=== PATIENT | male | born 1960 | race Caucasian/White ===

== ENCOUNTER 2022-05-20 22:43 | Inpatient (IN) | payer MEDICAID ==
[~2022-05-20] VITALS: Ht 198.1 cm; Wt 89.4 kg
[2022-05-21 00:10] VITALS: BP 145/100
[2022-05-21] MEDS ORDERED: ACETAMINOPHEN 325 MG TABLET PO PRN (01:15)
[2022-05-21] MEDS ORDERED: HYDROCODONE/APAP 5-325MG TABLET PO PRN (01:15)
[2022-05-21] MEDS ORDERED: ONDANSETRON HCL 4 MG TABLET PO PRN (01:15)
[2022-05-21] MEDS ORDERED: ZOLPIDEM 5 MG TABLET PO PRN (01:15)
[2022-05-21] MEDS ORDERED: hydrALAZINE HCL 25 MG TABLET PO PRN (01:15)
[2022-05-21] MEDS ORDERED: CEFTRIAXONE 1 G VIAL IM SCH (02:00)
--- NOTE | 2022-05-21 02:00 | NUR ---
Admitted to Tele under Dr. Michael. Dx ARF, CHF, UTI, Anemia. AAOx4. Has L AC 20 g intact and patent. SOB on ambulation sating at 99%. Pt reported nasal congestion draining down to his throat, that's when he's having difficulty breathing. He restarted using Marijuana as expectorant. Routine admission care done, oriented to room, TV, BR and call light. Plan of care initiated.
--- NOTE | 2022-05-21 02:30 | NUR ---
Pt is Afib and Aflutter, HR 105-124. Ronal HUTTON aware.
[2022-05-21] MEDS ORDERED: CEFTRIAXONE 1 G VIAL ONE (02:39)
[2022-05-21] MEDS: CEFTRIAXONE 1 G in IV DEXTROSE 5% 50 ML IV SCH ×2 (02:56→20:42)
--- NOTE | 2022-05-21 03:15 | NUR ---
BP 158/96. Apresoline given as ordered. Will reassess.
[2022-05-21 04:00] VITALS: BP 158/96
[2022-05-21 06:32] LABS: HEMATOCRIT 24.7 % (36.7-47.1); MEAN CORPUSCULAR HEMOGLOBIN 22.1 uug (23.8-33.4); MEAN CORPUSCULAR VOLUME 70.7 fL (73.0-96.2); PLATELET COUNT (AUTO) 304 K/uL (152-348)
[2022-05-21 06:48] LABS: BILIRUBIN,TOTAL 0.5 mg/dL (0.2-1.0); CREATININE 2.1 mg/dL (0.6-1.3); MAGNESIUM 1.6 mg/dL (1.8-2.4); PHOSPHOROUS 4.4 mg/dL (2.5-4.9); POTASSIUM 4.1 mmol/L (3.5-5.1); TOTAL PROTEIN, SERUM 6.5 g/dL (6.4-8.2)
[2022-05-21] MEDS: PANTOPRAZOLE SODIUM 40 MG TABLET.DR PO SCH (06:48)
[2022-05-21 07:32] LABS: THYROID STIMULATING HORMONE 1.276 mIU/mL (0.358-3.740)
[2022-05-21 07:36] LABS: URIC ACID 7.5 mg/dL (3.5-7.2)
[2022-05-21] MEDS ORDERED: CARVEDILOL 6.25 MG TABLET PO SCH (08:00)
[2022-05-21 08:40] VITALS: BP 161/110
[2022-05-21] MEDS: AMLODIPINE 5 MG TABLET PO SCH (08:49)
[2022-05-21] MEDS ORDERED: METOPROLOL TARTRATE 25 MG TABLET PO SCH (09:00)
[2022-05-21] MEDS ORDERED: MAGNESIUM SULFATE/D5W 100 ML IV SCH (09:30)
[2022-05-21 11:53] VITALS: BP 136/108
[2022-05-21] MEDS: MAGNESIUM SULFATE/D5W 100 ML IV SCH ×2 (11:58→13:53)
[2022-05-21] MEDS: DILTIAZEM HCL 30 MG TABLET PO SCH ×2 (11:59→17:23)
[2022-05-21 13:05] LABS: EOSINOPHILS % (MANUAL) 6 % (0-8); LYMPHOCYTES % (MANUAL) 22 % (20-40); MONOCYTES % (MANUAL) 10 % (2-10); NEUTROPHILS % (MANUAL) 62 % (42-75)
[2022-05-21] MEDS ORDERED: INSULIN REGULAR, HUMAN 300 UNIT/3 ML VIAL SQ PRN (14:15)
[2022-05-21] MEDS ORDERED: DEXTROSE 50% 50 ML DISP.SYRIN IV PRN (14:15)
[2022-05-21 16:08] VITALS: BP 134/80
[2022-05-21] MEDS: BLOOD SUGAR DIAGNOSTIC 1 EACH STRIP VI SCH ×2 (16:12→20:53)
[2022-05-21] MEDS: METFORMIN HCL 500 MG TABLET PO SCH (17:22)
[2022-05-21 18:16] LABS: FERRITIN 27 ng/mL (26-388)
[2022-05-21] MEDS ORDERED: NORMAL SALINE NASAL 45 ML BOTTLE NS PRN (18:30)
--- NOTE | 2022-05-21 19:35 | NUR ---
Patient alert oriented, no sob no chest pain, A Fib A flutter 48 to 130, patient asymptomatic, no headaches, no dizziness noted, stated "Im fine". Patient stayed in bed assist with toileting., cont to monitor.
[2022-05-21 20:00] VITALS: BP 133/69
[2022-05-21 20:08] LABS: ABG BASE EXCESS -1.2 mmol/L; ABG HCO3 22.5 mmol/L; ABG PCO2 33.6 mmHg (35.0-45.0); ABG PH 7.444 (7.350-7.450); ABG PO2 74.6 mmHg (75.0-100.0); ABG SITE LEFT RADIAL; COHb 0.2 % (0.5-1.5); MetHb 0.1 % (0.0-1.5); O2Hb 94.5 % (94.0-97.0); VENT MODE ROOM AIR
--- NOTE | 2022-05-21 22:50 | NUR ---
Patient has episode of 0.72 sec paused but asymptomatic no headaches, no dizziness, patient also has slow venticular response of 41 less than a seconds. notify Dr Ramirez with no order at this time. cont to monitor.
[2022-05-21] MEDS: ACETYLCYSTEINE 20% 800 MG/4 ML VIAL NEB SCH (23:01)
[2022-05-21] MEDS: IPRATROPIUM BROMIDE 0.5 MG/2.5 ML NEBU NEB SCH (23:01)
[2022-05-22] VITALS: BP 141/87
[2022-05-22] MEDS: DILTIAZEM HCL 30 MG TABLET PO SCH ×4 (00:30→17:17)
[2022-05-22 04:00] VITALS: BP 139/91
[2022-05-22] MEDS: BLOOD SUGAR DIAGNOSTIC 1 EACH STRIP VI SCH ×4 (06:01→21:32)
[2022-05-22] MEDS: PANTOPRAZOLE SODIUM 40 MG TABLET.DR PO SCH (06:01)
[2022-05-22 06:23] LABS: HEMATOCRIT 25.7 % (36.7-47.1); MEAN CORPUSCULAR HEMOGLOBIN 21.9 uug (23.8-33.4); MEAN CORPUSCULAR VOLUME 70.5 fL (73.0-96.2); PLATELET COUNT (AUTO) 307 K/uL (152-348)
--- NOTE | 2022-05-22 06:45 | NUR ---
Patient alert oriented, no sob no chest pain, patient still A flutter then A fib, also ileana low 40 when asleep and resting, asymptomatic, cont to monitor.
[2022-05-22 07:00] LABS: CREATININE 1.9 mg/dL (0.6-1.3); PHOSPHOROUS 3.7 mg/dL (2.5-4.9); POTASSIUM 4.4 mmol/L (3.5-5.1)
[2022-05-22] MEDS: ACETYLCYSTEINE 20% 800 MG/4 ML VIAL NEB SCH ×3 (07:44→22:34)
[2022-05-22] MEDS: IPRATROPIUM BROMIDE 0.5 MG/2.5 ML NEBU NEB SCH ×3 (07:44→22:34)
[2022-05-22 08:00] VITALS: BP 147/92
[2022-05-22] MEDS ORDERED: FUROSEMIDE 40 MG/4 ML VIAL IV ONE (09:00)
[2022-05-22] MEDS: AMLODIPINE 5 MG TABLET PO SCH (09:16)
[2022-05-22] MEDS: METFORMIN HCL 500 MG TABLET PO SCH ×2 (09:16→17:17)
[2022-05-22 11:23] VITALS: BP 122/87
[2022-05-22] MEDS: CEFTRIAXONE 2 G in IV DEXTROSE 5% 100 ML IV SCH (11:45)
[2022-05-22 11:46] LABS: BAND % (MANUAL) 1 % (0-10); EOSINOPHILS % (MANUAL) 1 % (0-8); LYMPHOCYTES % (MANUAL) 11 % (20-40); MONOCYTES % (MANUAL) 9 % (2-10); NEUTROPHILS % (MANUAL) 78 % (42-75)
[2022-05-22 13:53] LABS: *BILIRUBIN,URIN NEGATIVE (NEGATIVE); *BLOOD, URINE NEGATIVE (NEGATIVE); *CLARITY,URINE CLEAR (CLEAR); *COLOR,URINE LIGHT YELLOW (YELLOW); *KETONES,URINE NEGATIVE (NEGATIVE); *UROBILINOGEN,URINE 0.2 E.U./dl (NORMAL); LEUKOCYTE ESTERASE ,URINE NEGATIVE (NEGATIVE); NITRITE, URINE NEGATIVE (NEGATIVE); PH,URINE 6.5 (5.0-8.0); UGLUCOSE NEGATIVE (NEGATIVE)
[2022-05-22 14:43] LABS: *CREATININE,URINE < 13.0 mg/dL (30-125)
[2022-05-22] MEDS: SOD FERRIC GLUC COMPLX/SUCROSE 125 MG in IV NORMAL SALINE 100 ML IV SCH (15:13)
[2022-05-22 15:22] VITALS: BP 120/63
[2022-05-22 18:59] LABS: *OCCULT BLOOD STOOL NEGATIVE (NEGATIVE)
--- NOTE | 2022-05-22 20:00 | NUR ---
Patient alert oriented no sob no chest pain, A flutter on tele, no complain of pain, cont to monitor.
--- NOTE | 2022-05-22 21:39 | NUR ---
Patient complain of nasal congestion, requesting Flonase nasal spray, notify Dr. barahona with order.
[2022-05-23 00:02] VITALS: BP 133/85
[2022-05-23] MEDS: DILTIAZEM HCL 30 MG TABLET PO SCH ×2 (00:09→06:01)
--- NOTE | 2022-05-23 00:12 | NUR ---
cpap machine at the room, brought by RT, patient refused Cpap. cont to encourage.
--- NOTE | 2022-05-23 00:35 | NUR ---
Patient changed his mind and wanted to have CPAP, RT placed the CPAP tolerate well, cont to monitor.
[2022-05-23 04:36] VITALS: BP 122/83
[2022-05-23] MEDS: PANTOPRAZOLE SODIUM 40 MG TABLET.DR PO SCH (06:01)
[2022-05-23] MEDS: BLOOD SUGAR DIAGNOSTIC 1 EACH STRIP VI SCH ×4 (06:07→21:00)
[2022-05-23 06:52] LABS: HEMATOCRIT 25.7 % (36.7-47.1); MEAN CORPUSCULAR HEMOGLOBIN 21.7 uug (23.8-33.4); MEAN CORPUSCULAR VOLUME 69.4 fL (73.0-96.2); PLATELET COUNT (AUTO) 313 K/uL (152-348)
--- NOTE | 2022-05-23 06:57 | NUR ---
alert oriented, no sob no chest pain, A flutter on monitor heart rate 98-106. no complain of pain tolerate CPAP all night, cont to monitor.
[2022-05-23 07:02] LABS: CREATININE 2.1 mg/dL (0.6-1.3); MAGNESIUM 1.6 mg/dL (1.8-2.4); PHOSPHOROUS 3.8 mg/dL (2.5-4.9); POTASSIUM 3.9 mmol/L (3.5-5.1)
[2022-05-23 07:07] LABS: *IMMUNOGLOBULIN G, SERUM 801 mg/dL (603-1613)
[2022-05-23] MEDS: IPRATROPIUM BROMIDE 0.5 MG/2.5 ML NEBU NEB SCH ×3 (07:49→21:29)
[2022-05-23] MEDS: ACETYLCYSTEINE 20% 800 MG/4 ML VIAL NEB SCH ×3 (07:49→21:29)
[2022-05-23 08:07] LABS: A/G RATIO 1.2 (0.7-1.7); ALBUMIN 3.4 g/dL (2.9-4.4); ALPHA-1-GLOBULIN 0.3 g/dL (0.0-0.4); ALPHA-2-GLOBULIN 0.8 g/dL (0.4-1.0); BETA GLOBULIN 1.2 g/dL (0.7-1.3); GAMMA GLOBULIN 0.7 g/dL (0.4-1.8); GLOBULIN, TOTAL 2.9 g/dL (2.2-3.9); M-SPIKE Not Observed g/dL (Not Observed)
[2022-05-23 09:04] LABS: EOSINOPHILS % (MANUAL) 4 % (0-8); LYMPHOCYTES % (MANUAL) 13 % (20-40); MONOCYTES % (MANUAL) 8 % (2-10); NEUTROPHILS % (MANUAL) 75 % (42-75)
[2022-05-23] MEDS ORDERED: MAGNESIUM SULFATE/D5W 100 ML IV SCH (09:30)
[2022-05-23] MEDS: METFORMIN HCL 500 MG TABLET PO SCH ×2 (09:30→17:36)
[2022-05-23] MEDS: FLUTICASONE PROP NASAL SPRAY 16 GM BOTTLE NS SCH (09:31)
[2022-05-23] MEDS: AMLODIPINE 5 MG TABLET PO SCH (09:32)
[2022-05-23 11:51] VITALS: BP 115/58
[2022-05-23] MEDS ORDERED: FUROSEMIDE 20 MG/2 ML VIAL IV ONE (12:30)
[2022-05-23] MEDS: DILTIAZEM HCL CD 240 MG CAP.SR.24H PO SCH (13:02)
[2022-05-23] MEDS: CEFTRIAXONE 2 G in IV DEXTROSE 5% 100 ML IV SCH (13:04)
[2022-05-23] MEDS: SOD FERRIC GLUC COMPLX/SUCROSE 125 MG in IV NORMAL SALINE 100 ML IV SCH (13:06)
[2022-05-23 20:00] VITALS: BP 130/82
[2022-05-24 00:12] VITALS: BP 136/86
[2022-05-24 04:00] VITALS: BP 165/57
[2022-05-24] MEDS: PANTOPRAZOLE SODIUM 40 MG TABLET.DR PO SCH (06:03)
[2022-05-24] MEDS: BLOOD SUGAR DIAGNOSTIC 1 EACH STRIP VI SCH ×4 (06:36→20:58)
[2022-05-24 06:52] LABS: HEMATOCRIT 26.7 % (36.7-47.1); MEAN CORPUSCULAR HEMOGLOBIN 21.5 uug (23.8-33.4); MEAN CORPUSCULAR VOLUME 70.5 fL (73.0-96.2); PLATELET COUNT (AUTO) 319 K/uL (152-348)
[2022-05-24 07:01] LABS: CREATININE 2.2 mg/dL (0.6-1.3); MAGNESIUM 1.7 mg/dL (1.8-2.4); PHOSPHOROUS 4.2 mg/dL (2.5-4.9); POTASSIUM 3.8 mmol/L (3.5-5.1)
--- NOTE | 2022-05-24 08:00 | NUR ---
awake alert and oriented, denies of pain, explained plan of care- verbalized understanding, tele aflutter 70's, on room air- no dyspnea noted, up and about in the room, call light within reach
[2022-05-24] MEDS: IPRATROPIUM BROMIDE 0.5 MG/2.5 ML NEBU NEB SCH ×3 (08:06→21:14)
[2022-05-24] MEDS: ACETYLCYSTEINE 20% 800 MG/4 ML VIAL NEB SCH ×3 (08:06→21:14)
[2022-05-24] MEDS: METFORMIN HCL 500 MG TABLET PO SCH ×2 (08:40→17:18)
[2022-05-24] MEDS: AMLODIPINE 5 MG TABLET PO SCH (09:42)
[2022-05-24] MEDS: DILTIAZEM HCL CD 240 MG CAP.SR.24H PO SCH (09:42)
[2022-05-24] MEDS: FLUTICASONE PROP NASAL SPRAY 16 GM BOTTLE NS SCH (09:42)
[2022-05-24] MEDS ORDERED: MAGNESIUM SULFATE/D5W 100 ML IV SCH (10:30)
[2022-05-24 10:52] LABS: EOSINOPHILS % (MANUAL) 2 % (0-8); LYMPHOCYTES % (MANUAL) 18 % (20-40); MONOCYTES % (MANUAL) 12 % (2-10); NEUTROPHILS % (MANUAL) 68 % (42-75)
[2022-05-24 11:49] VITALS: BP 138/84
[2022-05-24] MEDS ORDERED: FUROSEMIDE 40 MG/4 ML VIAL IV ONE (12:30)
[2022-05-24] MEDS: CEFTRIAXONE 2 G in IV DEXTROSE 5% 100 ML IV SCH (12:37)
[2022-05-24] MEDS: SOD FERRIC GLUC COMPLX/SUCROSE 125 MG in IV NORMAL SALINE 100 ML IV SCH (14:19)
[2022-05-24 16:00] VITALS: BP 144/77
--- NOTE | 2022-05-24 18:26 | NUR ---
no distress noted, resting in bed, pleasant and cooperative, all needs attended and met, call light within reach
[2022-05-24 20:00] VITALS: BP 130/82
--- NOTE | 2022-05-25 00:09 | NUR ---
PATIENT BACK ON CPAP MACHINE @ 23:15 WITH CPAP @10CM, PT SEMI AWAKE, WILL TRY TO WEAR IT.Alina MURRELLP Addendum: 05/25/22 at 0010 by YON MONTILLA RT Amended: Links added.
[2022-05-25 06:27] LABS: HEMATOCRIT 28.5 % (36.7-47.1); MEAN CORPUSCULAR VOLUME 70.2 fL (73.0-96.2); PLATELET COUNT (AUTO) 336 K/uL (152-348)
[2022-05-25] MEDS: BLOOD SUGAR DIAGNOSTIC 1 EACH STRIP VI SCH ×3 (06:27→17:13)
[2022-05-25] MEDS: PANTOPRAZOLE SODIUM 40 MG TABLET.DR PO SCH (06:27)
[2022-05-25 06:54] LABS: CREATININE 2.2 mg/dL (0.6-1.3); PHOSPHOROUS 3.9 mg/dL (2.5-4.9); POTASSIUM 3.8 mmol/L (3.5-5.1)
[2022-05-25] MEDS: IPRATROPIUM BROMIDE 0.5 MG/2.5 ML NEBU NEB SCH ×2 (07:40→15:00)
[2022-05-25] MEDS: ACETYLCYSTEINE 20% 800 MG/4 ML VIAL NEB SCH ×2 (07:40→15:00)
--- NOTE | 2022-05-25 08:00 | NUR ---
awake alert and oriented, denies of pain no dyspnea, has cough productive of thick yellowish phlegm- sent to lab, seen by dr Salgado earlier, safety measures mainlined- call light within reach
[2022-05-25] MEDS: METFORMIN HCL 500 MG TABLET PO SCH ×2 (08:15→17:29)
[2022-05-25] MEDS ORDERED: DILT240C88 PO (08:32)
[2022-05-25] MEDS ORDERED: FERR325T23 PO ×2 (08:32→15:51)
[2022-05-25] MEDS ORDERED: AMLO-212 PO ×2 (08:32→15:51)
[2022-05-25] MEDS: DILTIAZEM HCL CD 240 MG CAP.SR.24H PO SCH (08:35)
[2022-05-25] MEDS: AMLODIPINE 5 MG TABLET PO SCH (08:35)
[2022-05-25] MEDS: FLUTICASONE PROP NASAL SPRAY 16 GM BOTTLE NS SCH (08:39)
--- NOTE | 2022-05-25 09:00 | NUR ---
seen by hospitalist Mae Fisher
[2022-05-25 11:25] VITALS: BP 132/76
--- NOTE | 2022-05-25 11:48 | NUR ---
seen by Dr Cartagena, marybeth to go home
[2022-05-25] MEDS: CEFTRIAXONE 2 G in IV DEXTROSE 5% 100 ML IV SCH (12:21)
--- NOTE | 2022-05-25 12:30 | NUR ---
pt in agreement for discharge, sulma cobb now,
--- NOTE | 2022-05-25 13:35 | NUR ---
discharge instructions given, verbalized understanding, iv on left forearm removed, no swelling/redness noted onsite, states preferred pharmacy in not right - gave [facility] in [place] in [place] as preferred pharmacy- updated, pt forgot to mention earlier to hospitalist re previous iv midline site on the left upper arm- states it is swollen, hard and tender inside going up like a size of a pencil- hospitalist informed and US of left arm to evaluate dvt ordered
[2022-05-25] MEDS: SOD FERRIC GLUC COMPLX/SUCROSE 125 MG in IV NORMAL SALINE 100 ML IV SCH (14:00)
--- NOTE | 2022-05-25 14:30 | NUR ---
US of the left upper arm done-awaiting for results
[2022-05-25] MEDS ORDERED: FERROUS SULFATE 325 MG TABEC PO SCH (15:00)
[2022-05-25] MEDS ORDERED: DILT-3 PO (15:51)
--- NOTE | 2022-05-25 16:30 | NUR ---
pt in stable condition, escorted to transport- pt taking uber, all belongings with him.
[2022-05-25 16:41] VITALS: BP 116/73
--- NOTE | 2022-05-25 17:30 | NUR ---
US results relayed to hospitalist-ok to be d/c- pt informed, prescriptions electronically sent to his preferred pharmacy
[2022-05-26 16:06] LABS: IMMUNOGLOBULIN M, SERUM 51 mg/dL (20-172)
== END 2022-05-25 18:30 | disposition home or self-care (01) | DRG 201 ==
LOC: TELE3 23:54 → MEDSURG3 05-24 16:23
PROVIDERS: ADMIT Registered Nurse; ATTEND Nurse Practitioner Acute Care
PROC: 05H633Z Insertion of Infusion Device into Left Subclavian Vein, Percutaneous Approach (ICD-10-PCS; principal; 2022-05-21)
PROC: B547ZZA Ultrasonography of Left Subclavian Vein, Guidance (ICD-10-PCS; principal; 2022-05-21)
DX: I48.91 Unspecified atrial fibrillation (principal); N17.0 Acute kidney failure with tubular necrosis; I50.31 Acute diastolic (congestive) heart failure; D50.9 Iron deficiency anemia, unspecified; E11.22 Type 2 diabetes mellitus with diabetic chronic kidney disease; E66.01 Morbid (severe) obesity due to excess calories; G47.30 Sleep apnea, unspecified; I13.0 Hypertensive heart and chronic kidney disease with heart failure and stage 1 through stage 4 chronic kidney disease, or unspecified chronic kidney disease; I48.92 Unspecified atrial flutter; N18.9 Chronic kidney disease, unspecified; N39.0 Urinary tract infection, site not specified; Z87.891 Personal history of nicotine dependence; Z82.5 Family history of asthma and other chronic lower respiratory diseases; Z77.098 Contact with and (suspected) exposure to other hazardous, chiefly nonmedicinal, chemicals; Z68.22 Body mass index [BMI] 22.0-22.9, adult; J30.9 Allergic rhinitis, unspecified; N40.1 Benign prostatic hyperplasia with lower urinary tract symptoms; J44.9 Chronic obstructive pulmonary disease, unspecified; J40 Bronchitis, not specified as acute or chronic; R78.89 Finding of other specified substances, not normally found in blood
CPT/HCPCS: 36415; 36600; 70030-TC; 70486; 71045; 76770; 82378; 82746; 82784; 82785; 82803; 83550; 83735; 84100; 84155; 84165; 84300; 84443; 84550; 85025; 86334; 87070; 93307; 94640; 94660; 94664; A4663; G0378; J0696; J1815; J1940; J2916; J3475; J3535; J3590; J7050

== ENCOUNTER 2022-05-28 15:59 | Inpatient (IN) | payer MEDICAID ==
[~2022-05-28] VITALS: Ht 182.9 cm; Wt 117.9 kg
[~2022-05-28 15:59] MED LIST: AMLO-212 PO; DILT-3 PO; FERR325T23 PO
[2022-05-28 17:13] LABS: HEMATOCRIT 30.3 % (36.7-47.1); MEAN CORPUSCULAR HEMOGLOBIN 21.7 uug (23.8-33.4); MEAN CORPUSCULAR VOLUME 71.9 fL (73.0-96.2); PLATELET COUNT (AUTO) 385 K/uL (152-348)
[2022-05-28 17:27] LABS: BILIRUBIN,DIRECT 0.1 mg/dL (0.0-0.2); BILIRUBIN,TOTAL 0.5 mg/dL (0.2-1.0); CREATININE 2.8 mg/dL (0.6-1.3); POTASSIUM 4.1 mmol/L (3.5-5.1)
--- NOTE | 2022-05-28 18:07 | NUR ---
Pt out of ER for Ct scan.
--- NOTE | 2022-05-28 19:10 | NUR ---
Assumed care of patient from day shift EDIN Galvan. Patient AAOx4. In no apparent distress. Denies any pain at this time. Awaiting CT abd. result.
[2022-05-28 19:45] LABS: EOSINOPHILS % (MANUAL) 1 % (0-8); LYMPHOCYTES % (MANUAL) 7 % (20-40); MONOCYTES % (MANUAL) 4 % (2-10); NEUTROPHILS % (MANUAL) 88 % (42-75)
[2022-05-28] MEDS ORDERED: PIPERACILLIN SODIUM/TAZOBACTAM 3.375 G in IV DEXTROSE 5% 50 ML IV ONE (19:45)
[2022-05-28] MEDS ORDERED: PIPERACILLIN/TAZOBACTAM/D5W 50 ML IV ONE (19:56)
--- NOTE | 2022-05-28 20:10 | NUR ---
Dr. Alfonso on bedside.
--- NOTE | 2022-05-28 20:11 | NUR ---
Epic panel call placed, spoke to Sylvia, she stated she will get a hold of [facility] Gerry for admitting.
[2022-05-28] MEDS ORDERED: MAGNESIUM SULFATE/D5W 100 ML IV SCH (20:15)
--- NOTE | 2022-05-28 20:31 | NUR ---
Another call place to [employer] for panel with ANNI Garrett. Awaiting for return call.
--- NOTE | 2022-05-28 20:32 | NUR ---
Dr. Alfonso on panel call with ANNI Garrett. Patient accepted for admission to telemetry unit Dx Atrial Flutter with RVR, Acute on chronic kidney injury, Abd. pain.
[2022-05-28] MEDS ORDERED: MAGNESIUM HYDROXIDE 30 ML LIQUID UDC PO PRN (21:45)
[2022-05-28] MEDS ORDERED: HYDROCODONE/APAP 10-325 MG TABLET PO PRN (21:45)
[2022-05-28] MEDS ORDERED: ONDANSETRON 4 MG/2 ML VIAL IV PRN (21:45)
[2022-05-28] MEDS ORDERED: ACETAMINOPHEN 325 MG TABLET PO PRN (21:45)
--- NOTE | 2022-05-28 21:55 | NUR ---
Admitted this 62 y/o male to [place] room 318 under the care of [facility] TAIL[facility] Gerry, Dx: Colitis/Diverticulitis. No acute distress noted. Alert and oriented x3. IV access on LAC intact and patent. Admission care rendered, oriented to room, bathroom, TV and call light. Plan of care initiated. Needs assessed and attended to. Call light within easy reach.
--- NOTE | 2022-05-28 21:55 | NUR ---
Pt. admitted to telemetry unit room 319, under care of ANNI Garrett. Belongs List completed. Report given to EDIN Hagan
[2022-05-28 22:00] VITALS: BP 132/78
[2022-05-28] MEDS ORDERED: CEFTRIAXONE 1 G VIAL ONE (22:58)
[2022-05-28] MEDS ORDERED: METRONIDAZOLE 500 MG/NS 100ML 100 ML IV ONE ×2 (22:58)
[2022-05-28] MEDS: METRONIDAZOLE 500 MG/NS 100ML 500 MG in PREMIXED 1 EACH IV SCH (23:07)
[2022-05-29] MEDS: CEFTRIAXONE 1 G in IV DEXTROSE 5% 50 ML IV SCH ×2 (00:10→20:56)
[2022-05-29 01:25] LABS: *BILIRUBIN,URIN NEGATIVE (NEGATIVE); *BLOOD, URINE NEGATIVE (NEGATIVE); *CLARITY,URINE CLEAR (CLEAR); *COLOR,URINE YELLOW (YELLOW); *KETONES,URINE NEGATIVE (NEGATIVE); *UROBILINOGEN,URINE 0.2 E.U./dl (NORMAL); LEUKOCYTE ESTERASE ,URINE TRACE (NEGATIVE); NITRITE, URINE NEGATIVE (NEGATIVE); UGLUCOSE NEGATIVE (NEGATIVE)
[2022-05-29 01:35] LABS: BACTERIA,URINE NONE SEEN /HPF (NONE SEEN); RBC,URINE 0-3 /HPF (0-3); SQUAMOUS EPITHELIAL CELL,UR NONE SEEN /HPF (NONE SEEN); WBC,URINE 0-3 /HPF (0-3)
[2022-05-29 04:00] VITALS: BP 144/80
--- NOTE | 2022-05-29 05:18 | NUR ---
Admitted this 62 y/o male to [place] room 318 under the care of ANNI Garrett, Dx: Colitis/Diverticulitis. No acute distress noted. IV access on LAC intcat a Addendum: 05/29/22 at 0525 by NONA CHRISTINE RN incomplete charting
[2022-05-29] MEDS: PANTOPRAZOLE SODIUM 40 MG TABLET.DR PO SCH (06:31)
[2022-05-29] MEDS: METRONIDAZOLE 500 MG/NS 100ML 500 MG in PREMIXED 1 EACH IV SCH ×3 (06:49→22:36)
[2022-05-29 07:28] LABS: MEAN CORPUSCULAR HEMOGLOBIN 21.7 uug (23.8-33.4); MEAN CORPUSCULAR VOLUME 71.8 fL (73.0-96.2); PLATELET COUNT (AUTO) 355 K/uL (152-348)
[2022-05-29 07:43] LABS: CREATININE 2.5 mg/dL (0.6-1.3); MAGNESIUM 2.1 mg/dL (1.8-2.4); PHOSPHOROUS 4.4 mg/dL (2.5-4.9)
--- NOTE | 2022-05-29 08:00 | NUR ---
RECEIVED PATIENT IN BED AWAKE ALERT AND ORIENTED DENIES PAIN DISCOMFORTS AT THIS TIME CALL LIGHT AND PERSONAL BELONGINGS ARE WITHIN EASY REACH WILL CONTINUE TO OBSERVE.
[2022-05-29 09:17] LABS: EOSINOPHILS % (MANUAL) 3 % (0-8); LYMPHOCYTES % (MANUAL) 10 % (20-40); MONOCYTES % (MANUAL) 4 % (2-10); NEUTROPHILS % (MANUAL) 83 % (42-75)
[2022-05-29] MEDS: AMLODIPINE 5 MG TABLET PO SCH (09:40)
[2022-05-29] MEDS: DILTIAZEM HCL CD 240 MG CAP.SR.24H PO SCH (09:40)
[2022-05-29] MEDS: FERROUS SULFATE 325 MG TABEC PO SCH (09:41)
[2022-05-29 11:15] VITALS: BP 128/82
--- NOTE | 2022-05-29 14:16 | NUR ---
BLADDER SCAN CHECKED DIRECTED BY DR CEVALLOS AND AT THE MOMENT HE HAS ONLY 62 ML URINE IN BLADDER PER DR CEVALLOS INSERT ARROYO IF 300 ML OR MORE.
[2022-05-29 15:21] VITALS: BP 110/66
--- NOTE | 2022-05-29 18:00 | NUR ---
CHELA COLLECTED AND SENT TO THE LAB ORDERED AND PATIENT PLACED ON C DIFF ISOLATION PENDING THE RESULT OF THE STOOL.PATIENT EDUCATED.
--- NOTE | 2022-05-29 18:42 | NUR ---
PATIENT HAS LOW3 GRADE FEVER AT 99.I ALSO STATED THAT HE HAS SOME SINUS ISSUES NO COUGH NOTED DR WEBB NOTIFIED WITH NO NEW ORDERS AT THIS TIME
[2022-05-29 20:00] VITALS: BP 116/78
--- NOTE | 2022-05-29 23:19 | NUR ---
PATIENT REFUSING CPAP MACHINE, PT ON ROOM AIR, NO SOB NOTED.Alina MONTILLA [employer] Addendum: 05/29/22 at 2320 by YON MONTILLA RT Amended: Links added.
[2022-05-30 04:00] VITALS: BP 120/69
[2022-05-30] MEDS: METRONIDAZOLE 500 MG/NS 100ML 500 MG in PREMIXED 1 EACH IV SCH ×3 (07:07→21:04)
[2022-05-30] MEDS: PANTOPRAZOLE SODIUM 40 MG TABLET.DR PO SCH (07:07)
--- NOTE | 2022-05-30 07:55 | NUR ---
Awake, alert, oriented x 4, ambulatory, self care. Voiding freely with adequate urine output. Denies loose BM from last night.
--- NOTE | 2022-05-30 08:12 | NUR ---
RECEIVED REPORT FROM AM NURSE PT IS ALERT AND ORIENTED X4 PT C/O HAVING IV POLE WHILE GOING TO TOILET. AFTERWARDS PT VOIDS 1400 OF URINE OUTPUT NO SIGNS OF DISTRESS NOTED. PT DIDNT COMPLAIN OF LOOSE STOOL AND STOOL FOR C-DIFF STILL PENDING WILL ENDORSE TO AM NURSE.
[2022-05-30] MEDS ORDERED: CEFTRIAXONE 2 G in IV DEXTROSE 5% 100 ML IV SCH (09:00)
[2022-05-30] MEDS: FERROUS SULFATE 325 MG TABEC PO SCH (09:20)
[2022-05-30] MEDS: AMLODIPINE 5 MG TABLET PO SCH (09:22)
[2022-05-30] MEDS: DILTIAZEM HCL CD 240 MG CAP.SR.24H PO SCH (09:22)
[2022-05-30 10:59] VITALS: BP 122/75
--- NOTE | 2022-05-30 13:00 | NUR ---
C diff positive. Contact enteric precaution enforced. Vancomycin po ordered/initiated
[2022-05-30] MEDS: VANCOMYCIN FOR PO/GT/NG USE PO SCH ×3 (13:34→23:06)
[2022-05-30 15:47] VITALS: BP 121/61
--- NOTE | 2022-05-30 16:31 | NUR ---
Patient had several scant loose stool and feels constipated. Explained regarding c diff but insisted about being constipation. MOM given as ordered
--- NOTE | 2022-05-30 18:14 | NUR ---
No further BM, verbalized feeling better. With fair appetite. Denies nausea/vomiting and pain.
[2022-05-30 20:41] VITALS: BP 118/86
[2022-05-31 04:43] VITALS: BP 131/58
[2022-05-31] MEDS: VANCOMYCIN FOR PO/GT/NG USE PO SCH ×2 (05:40→12:22)
[2022-05-31] MEDS: METRONIDAZOLE 500 MG/NS 100ML 500 MG in PREMIXED 1 EACH IV SCH ×2 (05:40→13:52)
[2022-05-31] MEDS: PANTOPRAZOLE SODIUM 40 MG TABLET.DR PO SCH (06:37)
--- NOTE | 2022-05-31 09:00 | NUR ---
Awake, alert, oriented x 4. With incontinence of small mucoid dark stool. Contact precaution re enforced.
[2022-05-31] MEDS: FERROUS SULFATE 325 MG TABEC PO SCH (09:09)
[2022-05-31] MEDS: DILTIAZEM HCL CD 240 MG CAP.SR.24H PO SCH (09:23)
[2022-05-31] MEDS: AMLODIPINE 5 MG TABLET PO SCH (09:24)
[2022-05-31 10:47] VITALS: BP 118/83
[2022-05-31 12:55] LABS: HEMATOCRIT 30.9 % (36.7-47.1); MEAN CORPUSCULAR HEMOGLOBIN 22.2 uug (23.8-33.4); MEAN CORPUSCULAR VOLUME 71.8 fL (73.0-96.2); PLATELET COUNT (AUTO) 396 K/uL (152-348)
[2022-05-31 13:05] LABS: CREATININE 2.1 mg/dL (0.6-1.3); MAGNESIUM 2.2 mg/dL (1.8-2.4); PHOSPHOROUS 3.6 mg/dL (2.5-4.9); POTASSIUM 4.7 mmol/L (3.5-5.1)
--- NOTE | 2022-05-31 15:35 | NUR ---
With discharge order to home. Saline lock removed. Prescription and DC instruction given, verbalized understanding. Went home per wheelchair in fair condition, not in distress, afebrile.
== END 2022-05-31 15:30 | disposition home or self-care (01) | DRG 248 ==
LOC: ER 15:59 → TELE3 21:31 → MEDSURG3 21:56
DX: A04.72 Enterocolitis due to Clostridium difficile, not specified as recurrent (principal); N17.0 Acute kidney failure with tubular necrosis; I13.0 Hypertensive heart and chronic kidney disease with heart failure and stage 1 through stage 4 chronic kidney disease, or unspecified chronic kidney disease; I50.32 Chronic diastolic (congestive) heart failure; I48.92 Unspecified atrial flutter; E11.22 Type 2 diabetes mellitus with diabetic chronic kidney disease; D50.9 Iron deficiency anemia, unspecified; N18.4 Chronic kidney disease, stage 4 (severe); E66.9 Obesity, unspecified; I48.91 Unspecified atrial fibrillation; N40.0 Benign prostatic hyperplasia without lower urinary tract symptoms; Z87.891 Personal history of nicotine dependence; J44.9 Chronic obstructive pulmonary disease, unspecified; F12.11 Cannabis abuse, in remission; G47.30 Sleep apnea, unspecified; K57.32 Diverticulitis of large intestine without perforation or abscess without bleeding; Z20.822 Contact with and (suspected) exposure to COVID-19; Z68.35 Body mass index [BMI] 35.0-35.9, adult; N28.1 Cyst of kidney, acquired
CPT/HCPCS: 36415; 70030-TC; 71045; 83605; 83690; 83735; 84100; 84484; 85025; 85730; 87040; 93005; A4663; G0378; J0696; J2543; J3370; J3475; J3490